=== PATIENT | male | born 1940 | race Caucasian/White ===

== ENCOUNTER 2021-01-12 11:37 | Emergency (ER) | payer MEDICARE, SELFPAY ==
[2021-01-12 11:45] VITALS: BP 139/79; PULSE 87; RESP 20; TEMP 36; O2SAT 97
--- NOTE | 2021-01-12 11:49 | ED.URI ---
HPI - URI/Sore Throat General Chief Complaint: Upper Respiratory Infection Stated Complaint: dr referral Time Seen by Provider: 01/12/21 11:49 Source: patient, RN notes reviewed and police Mode of arrival: ambulatory Limitations: no limitations History of Present Illness HPI Narrative: 80-year-old male presents to the [facility] requesting a Covid test. States he is having surgery on Friday at a surgery center in [place] for kidney stones. Patient states he has had a scratchy sore throat, intermittent cough and intermittent diarrhea for the last 2-1/2 days. Denies any fevers, nausea, vomiting. Denies any new shortness of breath. Denies chest pain. Patient reports he does have a history of seasonal allergies and states this is normally what it feels like. Related Data Home Medications Medication Instructions Recorded Confirmed atorvastatin 40 mg PO DAILY 01/12/21 01/12/21 azithromycin 250 mg PO DAILY 01/12/21 01/12/21 icosapent ethyl 1 g PO BID 01/12/21 01/12/21 insulin aspart (niacinamide) 100 unit SUBCUT DIRECTED 01/12/21 01/12/21 [Fiasp FlexTouch U-100 Insulin] levothyroxine 100 mcg PO DAILY 01/12/21 01/12/21 metformin 500 mg PO DAILY 01/12/21 01/12/21 Allergies Allergy/AdvReac Type Severity Reaction Status Date / Time bacitracin Allergy Unknown Unknown Verified 01/12/21 12:01 codeine Allergy Unknown UNKNOWN Unverified 01/12/21 12:01 neomycin Allergy Unknown Unknown Verified 01/12/21 12:01 polymyxin B Allergy Unknown Unknown Verified 01/12/21 12:01 Sulfa (Sulfonamide Allergy Unknown Unknown Verified 01/12/21 12:01 Antibiotics) telithromycin Allergy Unknown Unknown Verified 01/12/21 12:01 MACROLIDES Allergy Unknown RASH Uncoded 01/12/21 12:01 Review of Systems Review of Systems: Narrative: CONSTITUTIONAL: Denies fever, chills, or sweats. EYES: Denies visual changes, redness, or discharge. ENT: Denies rhinorrhea, congestion, or otalgia. Reports itchy throat CARDIOVASCULAR: Denies chest pain, palpitations, or edema. RESPIRATORY: Reports intermittent cough without new dyspnea. GASTROINTESTINAL: Denies abdominal pain, nausea, vomiting, or diarrhea. GENITOURINARY: Denies dysuria or hematuria. SKIN: Denies rash or itching. MUSCULOSKELETAL: Denies back pain, joint pain, or myalgia. NEUROLOGIC: Denies headache, numbness, or weakness. PSYCHIATRIC: Denies anxiety or depression. All other systems reviewed are negative, except as documented in HPI. [facility] Social History Social History Gender identity (if verbalized by the patient): Male Comments At the time of my signature, I reviewed and agree with the nursing past medical, surgical, social, and family history. There is no relevant family history pertinent to the patient complaint. Exam Narrative: Exam Narrative: GENERAL: This is a well-nourished, well-developed patient, in no apparent distress. HEAD: normocephalic, atraumatic. EYES: PERRL. Sclera clear/white. Vision is grossly intact. EARS: External ears normal, auditory canals clear and without drainage, TMs normal without perforation. Hearing grossly intact. NOSE: External nose normal. Clear nasal drainage, nares without redness. THROAT: Mucous membranes moist, posterior pharynx postnasal drip, thick clear drainage NECK: Neck supple, non-tender without lymphadenopathy, masses or thyromegaly. CARDIOVASCULAR: Regular rate and rhythm without murmurs, gallops, or rubs. RESPIRATORY: Clear to auscultation. Breath sounds equal bilaterally. No wheezes, rales, or rhonchi. GASTROINTESTINAL: Abdomen soft, non-tender, nondistended. SKIN: warm, Dry, intact with no suspicious lesions or rash, good texture and turgor. NEURO: awake, alert, and oriented to person, place and time. There were no obvious focal neurologic abnormalities. EXTREMITIES: No joint tenderness, effusion, or edema noted. BACK: Nontender without deformity. Course Vital Signs Vital signs: Vital Sign
[2021-01-13 20:54] LABS: SARS-CoV-2 RNA PCR Negative
== END 2021-01-12 12:03 | disposition home or self-care (01) ==
PROVIDERS: Emergency Provider Nurse Practitioner
DX: R09.82 Postnasal drip (principal); Z20.822 Contact with and (suspected) exposure to COVID-19; E78.00 Pure hypercholesterolemia, unspecified; I10 Essential (primary) hypertension; E11.9 Type 2 diabetes mellitus without complications; E03.9 Hypothyroidism, unspecified; Z95.5 Presence of coronary angioplasty implant and graft
CPT/HCPCS: 99213; C9803; G0463; U0003; U0005

== ENCOUNTER 2021-03-01 14:49 | Emergency (ER) | payer MEDICARE, SELFPAY ==
[2021-03-01 14:54] VITALS: BP 124/66; PULSE 60; RESP 20; TEMP 36.4; O2SAT 98
--- NOTE | 2021-03-01 14:54 | ED.SKABFB ---
HPI - Skin/Abscess/Foreign Bdy General Chief complaint: Skin/Abscess/Foreign Body Stated complaint: rash on leg and foot Time Seen by Provider: 03/01/21 14:57 Source: patient and RN notes reviewed History of Present Illness HPI narrative: Patient is an 81-year-old male who presents the urgent care with complaints of a itchy painful rash to the right ankle/lower leg. Patient states that it started on Friday and he assumed he had got a bug bite in the backyard . Patient states that it is now more painful in the area of redness has spread. Patient has not done anything [id number] for the rash. Denies of any fevers. Denies of any known tick bite. No other acute complaints. No acute distress noted. Patient aware of the plan of care. Some parts of this dictation were generated by voice recognition software and may contain typographical and/or grammatical inaccuracies. Related Data Home Medications Medication Instructions Recorded Confirmed atorvastatin 40 mg PO DAILY 01/12/21 01/12/21 azithromycin 250 mg PO DAILY 01/12/21 01/12/21 icosapent ethyl 1 g PO BID 01/12/21 01/12/21 insulin aspart (niacinamide) 100 unit SUBCUT DIRECTED 01/12/21 01/12/21 [Fiasp FlexTouch U-100 Insulin] levothyroxine 100 mcg PO DAILY 01/12/21 01/12/21 metformin 500 mg PO DAILY 01/12/21 01/12/21 Allergies Allergy/AdvReac Type Severity Reaction Status Date / Time bacitracin Allergy Unknown Unknown Verified 03/01/21 15:00 codeine Allergy Unknown UNKNOWN Verified 03/01/21 15:00 neomycin Allergy Unknown Unknown Verified 03/01/21 15:00 polymyxin B Allergy Unknown Unknown Verified 03/01/21 15:00 Sulfa (Sulfonamide Allergy Unknown Unknown Verified 03/01/21 15:00 Antibiotics) telithromycin Allergy Unknown Unknown Verified 03/01/21 15:00 MACROLIDES Allergy Unknown RASH Uncoded 01/12/21 12:01 Review of Systems Review of Systems: Narrative: CONSTITUTIONAL: Denies fever, chills, or sweats. EYES: Denies visual changes, redness, or discharge. ENT: Denies rhinorrhea, congestion, sore throat, or otalgia. CARDIOVASCULAR: Denies chest pain, palpitations, or edema. RESPIRATORY: Denies cough or dyspnea. GASTROINTESTINAL: Denies abdominal pain, nausea, vomiting, or diarrhea. GENITOURINARY: Denies dysuria or hematuria. SKIN: Reports of itchy painful rash to the lower right ankle/lower leg MUSCULOSKELETAL: Denies back pain, joint pain, or myalgia. NEUROLOGIC: Denies headache, numbness, or weakness. All other systems reviewed are negative, except as documented in HPI. PMFSH Social History Social History Gender identity (if verbalized by the patient): Male Comments At the time of my signature, I reviewed and agree with the nursing past medical, surgical, social, and family history. There is no relevant family history pertinent to the patient complaint. Exam Narrative: Exam Narrative: GENERAL: This is a well-nourished, well-developed patient, in no apparent distress. HEAD: normocephalic, atraumatic. EYES: PERRL. Sclera clear/white. Vision is grossly intact. EARS: External ears normal NOSE: External nose normal with no obvious nasal discharge, nares without redness, no rhinorrhea. THROAT: Mucous membranes moist NECK: Neck supple CARDIOVASCULAR: Regular rate and rhythm RESPIRATORY: Clear to auscultation. Breath sounds equal bilaterally. No wheezes, rales, or rhonchi. SKIN: 2 x 2 centimeter area of raised erythemic region to the medial aspect of the left lower leg/malleolus surrounding erythema measuring 4 cm in width and 8 cm in length NEURO: awake, alert, and oriented to person, place and time. There were no obvious focal neurologic abnormalities. EXTREMITIES: No edema to right lower leg. Positive strong right pedal pulse with capillary refill less than 2 seconds. Course Vital Signs Vital signs: Vital Signs Temperature 97.5 F L 03/01/21 14:54 Pulse Rate 60 03/01/21 14:54 Respiratory Rate 20
== END 2021-03-01 15:13 | disposition home or self-care (01) ==
PROVIDERS: Emergency Provider Nurse Practitioner Family
DX: S80.861A Insect bite (nonvenomous), right lower leg, initial encounter (principal); W57.XXXA Bitten or stung by nonvenomous insect and other nonvenomous arthropods, initial encounter; E78.00 Pure hypercholesterolemia, unspecified; I10 Essential (primary) hypertension; E11.9 Type 2 diabetes mellitus without complications; E03.9 Hypothyroidism, unspecified; Z95.5 Presence of coronary angioplasty implant and graft
CPT/HCPCS: 99213; G0463

== ENCOUNTER 2021-08-31 14:38 | Emergency (ER) | payer MEDICARE, SELFPAY ==
[2021-08-31 14:46] VITALS: BP 135/64; PULSE 59; RESP 18; TEMP 36.6; O2SAT 100
--- NOTE | 2021-08-31 15:12 | ED.URI ---
HPI - URI/Sore Throat General Chief Complaint: Upper Respiratory Infection Stated Complaint: cough causing pain in left side Source: patient and RN notes reviewed Mode of arrival: ambulatory History of Present Illness HPI Narrative: This is a 81-year-old male who presented to urgent care with complaints of some shortness of breath, cough that is productive with greenish sputum and congestion. Patient notes that he has pain to his left side beneath his ribs due to uncontrollable coughing. He also complains of a runny nose. His daughter was recently diagnosed with URI he took [id number] Robitussin for his symptoms. The patient denies CP, palpitation, extremity numbness, lightheadedness, dizziness, constipation, diarrhea, chills, or fever. MD elicited complaint: cough Related Data Home Medications Medication Instructions Recorded Confirmed atorvastatin 40 mg PO DAILY 01/12/21 08/31/21 icosapent ethyl 1 g PO BID 01/12/21 08/31/21 insulin aspart (niacinamide) 100 unit SUBCUT DIRECTED 01/12/21 08/31/21 [Fiasp FlexTouch U-100 Insulin] levothyroxine 100 mcg PO DAILY 01/12/21 08/31/21 metformin 500 mg PO DAILY 01/12/21 08/31/21 icosapent ethyl [Vascepa] 1 g PO QID 08/31/21 08/31/21 Allergies Allergy/AdvReac Type Severity Reaction Status Date / Time bacitracin Allergy Unknown Unknown Verified 03/01/21 15:00 codeine Allergy Unknown UNKNOWN Verified 03/01/21 15:00 neomycin Allergy Unknown Unknown Verified 03/01/21 15:00 polymyxin B Allergy Unknown Unknown Verified 03/01/21 15:00 Sulfa (Sulfonamide Allergy Unknown Unknown Verified 03/01/21 15:00 Antibiotics) telithromycin Allergy Unknown Unknown Verified 03/01/21 15:00 MACROLIDES Allergy Unknown RASH Uncoded 01/12/21 12:01 Review of Systems Review of Systems: A 14 organ system Review of Systems was performed and pertinent positives included in the HPI, otherwise remaining ROS is negative. [facility] Family History Family History (Updated 08/31/21 @ 15:15 by ABRAHAM Godinez) Other Family history non-contributory Social History Social History Gender identity (if verbalized by the patient): Male Exam Narrative: GENERAL: This is a well-nourished, well-developed patient, in no apparent distress. HEAD: normocephalic, atraumatic. EYES: PERRL. Sclera clear/white. Vision is grossly intact. EARS: External ears normal, auditory canals clear and without drainage, TMs normal without perforation. Hearing grossly intact. NOSE: External nose normal with no obvious nasal discharge, nares without redness, no rhinorrhea. THROAT: Mucous membranes moist, posterior pharynx clear. NECK: Neck supple, non-tender without lymphadenopathy, masses or thyromegaly. CARDIOVASCULAR: Regular rate and rhythm without murmurs, gallops, or rubs. RESPIRATORY: Clear to auscultation. Breath sounds equal bilaterally. No wheezes, rales, or rhonchi. GASTROINTESTINAL: Abdomen soft, non-tender, nondistended. Bowel sounds are active. No hepato-splenomegaly, or palpable masses. No guarding. SKIN: warm, intact with no suspicious lesions or rash, good texture and turgor. NEURO: awake, alert, and oriented to person, place and time. There were no obvious focal neurologic abnormalities. Steady gait EXTREMITIES: Normal range of motion. No edema. No calf tenderness. Negative Homans sign bilaterally. BACK: Nontender without deformity or crepitance. No flank tenderness. Course Course Emergency Course: Patient will discharge home with Tessalon Perles, guaifenesin, Flonase and albuterol Vital Signs Vital signs: Vital Signs Temperature 98 F 08/31/21 14:46 Pulse Rate 59 L 08/31/21 14:46 Respiratory Rate 18 08/31/21 14:46 Blood Pressure 135/64 08/31/21 14:46 Pulse Oximetry 100 08/31/21 14:46 Temperature 98 F 08/31/21 14:46 Pulse Rate 59 L 08/31/21 14:46 Respiratory Rate 18 08/31/21 14:46 Blood Pressure 135/64 08/31/21
[2021-09-01 20:10] LABS: SARS-CoV-2 RNA PCR Negative
== END 2021-08-31 15:38 | disposition home or self-care (01) ==
PROVIDERS: Emergency Provider Nurse Practitioner
DX: J40 Bronchitis, not specified as acute or chronic (principal); Z20.822 Contact with and (suspected) exposure to COVID-19
CPT/HCPCS: 87804; 99213; C9803; G0463; U0003; U0005

== ENCOUNTER 2021-11-30 14:17 | Emergency (ER) | payer MEDICARE, SELFPAY ==
[2021-11-30 14:29] VITALS: BP 118/64; PULSE 70; RESP 16; TEMP 37.1; O2SAT 97
--- NOTE | 2021-11-30 14:30 | ED.URI ---
HPI - URI/Sore Throat General Chief Complaint: Upper Respiratory Infection Stated Complaint: uri Time Seen by Provider: 11/30/21 14:30 Source: patient, family, RN notes reviewed and old records reviewed Mode of arrival: ambulatory Limitations: no limitations History of Present Illness HPI Narrative: 81-year-old male presents to the [facility] with generalized fatigue, I just do not feel right. Had a bronchitis symptoms with cough for approximately 10 days. Started with his sinuses the last 3 to 4 days. No treatment prior to arrival. Denies chest pain. No abdominal pain. No nausea vomiting or diarrhea. Denies fevers. MD elicited complaint: cough, rhinorrhea and nasal congestion Related Data Home Medications Medication Instructions Recorded Confirmed Fiasp FlexTouch U-100 Insulin 100 unit SUBCUT DIRECTED 01/12/21 11/30/21 atorvastatin 40 mg PO DAILY 01/12/21 11/30/21 levothyroxine 100 mcg PO DAILY 01/12/21 11/30/21 metformin 500 mg PO DAILY 01/12/21 11/30/21 icosapent ethyl [Vascepa] 1 g PO QID 08/31/21 11/30/21 Allergies Allergy/AdvReac Type Severity Reaction Status Date / Time bacitracin Allergy Unknown Unknown Verified 11/30/21 14:19 codeine Allergy Unknown UNKNOWN Verified 11/30/21 14:19 neomycin Allergy Unknown Unknown Verified 11/30/21 14:19 polymyxin B Allergy Unknown Unknown Verified 11/30/21 14:19 Sulfa (Sulfonamide Allergy Unknown Unknown Verified 11/30/21 14:19 Antibiotics) telithromycin Allergy Unknown Unknown Verified 11/30/21 14:19 MACROLIDES Allergy Unknown RASH Uncoded 11/30/21 14:19 Review of Systems Review of Systems: All systems reviewed & are unremarkable except as noted in HPI and below Constitutional: Constitutional: Reports no additional constitutional complaints, Denies chills, Denies fever(s) and Denies headache(s) Eyes: Eyes: Reports no additional eye complaints ENT: Reports as per HPI, Denies vertigo, Denies dizziness, Denies headache(s), Reports nasal congestion and Denies sore throat Cardiovascular: Cardiovascular: Reports no additional cardiovascular complaints, Denies chest pain, Denies syncope, Denies rapid heart rate and Denies dyspnea Respiratory: Respiratory: Reports as per HPI, Denies cough, Denies dyspnea and Denies wheezing Gastrointestinal: Gastrointestinal: Reports no additional gastrointestinal complaints, Denies abdominal pain, Denies diarrhea, Denies nausea and Denies vomiting Musculoskeletal: Musculoskeletal: Reports no additional musculoskeletal complaints and Denies numbness Integumentary/Breasts: Skin/Breast: Reports system reviewed and no additional complaints, except as docu Neurologic: Reports system reviewed and no additional complaints, except as documented, Denies vertigo, Denies dizziness, Denies syncope, Denies headache(s), Denies focal weakness and Denies numbness Psychiatric: Psychiatric: Reports no additional psychiatric complaints Allergic/Immunologic: Allergic/Immunologic: Reports no additional allergic/immunologic complaints and Denies wheezing PMFSH Past Medical History Medical History (Updated 11/30/21 @ 20:12 by Na Peraza APRN) Diabetes High cholesterol Surgical History Surgical History (Updated 11/30/21 @ 14:46 by Na Peraza APRN) H/O heart artery stent Family History Family History (Updated 08/31/21 @ 15:15 by ABRAHAM Godinez) Other Family history non-contributory Social History Social History Gender identity (if verbalized by the patient): Male Comments At the time of my signature, I reviewed and agree with the nursing past medical, surgical, social, and family history. There is no relevant family history pertinent to the patient complaint. Exam Const: General: cooperative, healthy appearing, no acute distress, well developed and alert Nutritional Appearance: well nourished and obese Orientation/consciousness: patient oriented x3 [employer]itat
== END 2021-11-30 14:52 | disposition home or self-care (01) ==
PROVIDERS: Emergency Provider Nurse Practitioner
DX: J40 Bronchitis, not specified as acute or chronic (principal); H61.21 Impacted cerumen, right ear; J01.40 Acute pansinusitis, unspecified; E11.9 Type 2 diabetes mellitus without complications; E78.00 Pure hypercholesterolemia, unspecified
CPT/HCPCS: 69210; 99213; G0463

== ENCOUNTER 2022-04-16 11:38 | Emergency (ER) | payer MEDICARE, SELFPAY ==
--- NOTE | ~2022-04-16 | XR_ITS ---
XR chest 2V 04/16/2022 12:32 Indication: Chest pain with cough and fever Procedure: 2 view chest Comparison: 02/08/2018 Findings: There is right lower lobe airspace disease which may represent atelectasis or developing pn eumonia. Stable cardiomediastinal silhouette. There is atherosclerosis. No edema or pneumothorax. No pleural effusion. Impression: 1: Right lower lobe airspace disease, atelectasis versus pneumonia. Reviewed, dictated and finalized at location A. Impression: 1: Right lower lobe airspace disease, atelectasis versus pneumonia.
[2022-04-16 11:47] VITALS: BP 127/63; PULSE 96; RESP 20; TEMP 38; O2SAT 97
--- NOTE | 2022-04-16 12:01 | ED.URI ---
HPI - URI/Sore Throat General Chief Complaint: Upper Respiratory Infection Stated Complaint: Fever/Cough Time Seen by Provider: 04/16/22 12:08 Source: patient and RN notes reviewed Mode of arrival: ambulatory Limitations: no limitations History of Present Illness HPI Narrative: 82-year-old male presents with concern for cough, fevers, headache, chest pain with coughing. He reports he has had a chronic cough for 2 years which he sees his primary care doctor for. However, he reports this cough has changed in nature and the chest pain with coughing is a new symptom. He reports has been taking Mucinex, Robitussin, Tylenol for his symptoms. He denies shortness of breath, chest pain on exertion, back pain. He denies nausea, vomiting, diarrhea. Denies any fatigue or body aches. He denies known sick contacts. MD elicited complaint: cough and sore throat Related Data Home Medications Medication Instructions Recorded Confirmed atorvastatin 40 mg tablet 40 mg PO DAILY 01/12/21 04/16/22 insulin aspart 100 unit subcut DIRECTED 01/12/21 04/16/22 (niacinamide)(U-100) 100 unit/mL(3 mL) subcutaneous pen (Fiasp FlexTouch U-100 Insulin) levothyroxine 100 mcg tablet 100 mcg PO DAILY 01/12/21 04/16/22 metformin 500 mg tablet 500 mg PO DAILY 01/12/21 04/16/22 icosapent ethyl 1 gram capsule 1 g PO QID 08/31/21 04/16/22 (Vascepa) ezetimibe 10 mg tablet 10 mg PO DAILY 04/16/22 04/16/22 Allergies Allergy/AdvReac Type Severity Reaction Status Date / Time bacitracin Allergy Unknown Unknown Verified 04/16/22 12:00 codeine Allergy Unknown UNKNOWN Verified 04/16/22 12:00 neomycin Allergy Unknown Unknown Verified 04/16/22 12:00 polymyxin B Allergy Unknown Unknown Verified 04/16/22 12:00 Sulfa (Sulfonamide Allergy Unknown Unknown Verified 04/16/22 12:00 Antibiotics) telithromycin Allergy Unknown Unknown Verified 04/16/22 12:00 MACROLIDES Allergy Unknown RASH Uncoded 11/30/21 14:19 Review of Systems Review of Systems: CONSTITUTIONAL: Reports malaise. Denies chills, sweats, or fever. EYES: Denies visual changes, redness, or discharge. ENT: Reports rhinorrhea, congestion, sore throat. Denies sinus pain, otalgia CARDIOVASCULAR: Denies chest pain, palpitations, or edema. RESPIRATORY: Reports productive cough. Denies dyspnea. GASTROINTESTINAL: Denies abdominal pain, nausea, vomiting, diarrhea SKIN: Denies rash or itching. MUSCULOSKELETAL: Denies myalgia. NEUROLOGIC: Reports headache. All systems reviewed & are unremarkable except as noted in HPI and below PMFSH Past Medical History Medical History (Updated 04/16/22 @ 12:47 by Na Lopez NP) Diabetes High cholesterol Surgical History Surgical History (Updated 11/30/21 @ 14:46 by Na Peraza, [employer]) H/O heart artery stent Family History Family History (Updated 08/31/21 @ 15:15 by ABRAHAM Godinez) Other Family history non-contributory Social History Social History Gender identity (if verbalized by the patient): Male Comments At time of signature, agree with nursing past medical, surgical, social and family history. There is no relevant family history pertinent to the presenting complaint Exam Narrative: GENERAL: Nontoxic and in no acute distress. HEAD: Normocephalic EYES: PERRLA, conjunctivae clear ENT: Nares clear, clear discharge. Mucous membranes moist. TM pearly chavez with dull light reflex bilaterally; no tragal tenderness. Oropharynx not erythematous without lesions. Tonsils not enlarged and without exudate, no drooling, no hoarseness, no trismus, uvula midline. NECK: Supple. No lymphadenopathy CHEST: Left lower lobe coarseness, otherwise clear to auscultation, breath sounds equal. No wheezing, rales, or stridor. No respiratory distress, speaks in full sentences. HEART: Regular rate and rhythm. No murmur heard. SKIN: Warm, dry, no rash. NEURO: Alert and oriented x3. PSYCH: Normal
[2022-04-16 18:46] LABS: SARS-CoV-2 RNA PCR Positive
== END 2022-04-16 12:50 | disposition home or self-care (01) ==
PROVIDERS: Emergency Provider Nurse Practitioner
DX: H66.90 Otitis media, unspecified, unspecified ear (principal); J18.9 Pneumonia, unspecified organism; Z20.822 Contact with and (suspected) exposure to COVID-19; E11.9 Type 2 diabetes mellitus without complications; E78.00 Pure hypercholesterolemia, unspecified; Z95.5 Presence of coronary angioplasty implant and graft
CPT/HCPCS: 71046; 87426; 99213; C9803; G0463; U0003; U0005

== ENCOUNTER 2022-08-13 11:54 | Emergency (ER) | payer MEDICARE, SELFPAY ==
--- NOTE | 2022-08-13 11:59 | ED.URI ---
HPI - URI/Sore Throat General Chief Complaint: Upper Respiratory Infection Stated Complaint: sinus / bronchitis Time Seen by Provider: 08/13/22 12:00 Source: patient and RN notes reviewed History of Present Illness HPI Narrative: patient is an 82-year-old male who presents to the Urgent Care with complaints of sinus congestion / pressure and cough since Friday. Patient denies any known fevers but states he has had some chills and body aches this morning. Denies any nausea or vomiting. Denies of shortness of breath or chest pain. Patient has been taking Mucinex and Robitussin. Denies any ill exposures. No other acute complaints. No acute distress noted. Patient aware of the plan of care. Some parts of this dictation were generated by voice recognition software and may contain typographical and/or grammatical inaccuracies. Related Data Home Medications Medication Instructions Recorded Confirmed atorvastatin 40 mg tablet 40 mg PO DAILY 01/12/21 04/16/22 insulin aspart 100 unit subcut DIRECTED 01/12/21 04/16/22 (niacinamide)(U-100) 100 unit/mL(3 mL) subcutaneous pen (Fiasp FlexTouch U-100 Insulin) levothyroxine 100 mcg tablet 100 mcg PO DAILY 01/12/21 04/16/22 metformin 500 mg tablet 500 mg PO DAILY 01/12/21 04/16/22 icosapent ethyl 1 gram capsule 1 g PO QID 08/31/21 04/16/22 (Vascepa) ezetimibe 10 mg tablet 10 mg PO DAILY 04/16/22 04/16/22 Allergies Allergy/AdvReac Type Severity Reaction Status Date / Time bacitracin Allergy Unknown Unknown Verified 04/16/22 12:00 codeine Allergy Unknown UNKNOWN Verified 04/16/22 12:00 neomycin Allergy Unknown Unknown Verified 04/16/22 12:00 polymyxin B Allergy Unknown Unknown Verified 04/16/22 12:00 Sulfa (Sulfonamide Allergy Unknown Unknown Verified 04/16/22 12:00 Antibiotics) telithromycin Allergy Unknown Unknown Verified 04/16/22 12:00 MACROLIDES Allergy Unknown RASH Uncoded 11/30/21 14:19 Review of Systems Review of Systems: CONSTITUTIONAL: Denies fever, chills, or sweats. EYES: Denies visual changes, redness, or discharge. ENT: Reports of drainage, rhinorrhea, congestion pressure CARDIOVASCULAR: Denies chest pain, palpitations, or edema. RESPIRATORY: reports of cough without dyspnea GASTROINTESTINAL: Denies abdominal pain, nausea, vomiting, or diarrhea. GENITOURINARY: Denies dysuria or hematuria. SKIN: Denies rash or itching. MUSCULOSKELETAL: Denies back pain, joint pain, or myalgia. NEUROLOGIC: Denies headache, numbness, or weakness. All other systems reviewed are negative, except as documented in HPI. [facility] Past Medical History Medical History (Updated 08/13/22 @ 12:25 by SHERRY Hollins) Diabetes High cholesterol Surgical History Surgical History (Updated 11/30/21 @ 14:46 by Na Peraza APRN) H/O heart artery stent Family History Family History (Updated 08/31/21 @ 15:15 by ABRAHAM Godinez) Other Family history non-contributory Social History Social History Gender identity (if verbalized by the patient): Male Comments At the time of my signature, I reviewed and agree with the nursing past medical, surgical, social, and family history. There is no relevant family history pertinent to the patient complaint. Exam Narrative: GENERAL: This is a well-nourished, well-developed patient. appears fatigued HEAD: normocephalic, atraumatic. EYES: PERRL. Sclera clear/white. Vision is grossly intact. EARS: External ears normal, auditory canals clear and without drainage, TMs normal without perforation. Hearing grossly intact. NOSE: External nose normal with no obvious nasal discharge. Bilateral erythema nares with clear to yellow rhinorrhea THROAT: Mucous membranes moist, posterior pharynx clear. moderate postnasal drainage NECK: Neck supple RESPIRATORY: Clear to auscultation. Breath sounds equal bilaterally. No wheezes, rales, or rhonchi. SKIN: warm, inta
[2022-08-13 12:02] VITALS: BP 141/70; PULSE 110; RESP 18; TEMP 36.9; O2SAT 100
[2022-08-13 12:03] VITALS: BP 141/70; PULSE 110; RESP 18; TEMP 36.9; O2SAT 100
== END 2022-08-13 12:34 | disposition home or self-care (01) ==
PROVIDERS: Emergency Provider Nurse Practitioner Family
DX: J40 Bronchitis, not specified as acute or chronic (principal); J32.9 Chronic sinusitis, unspecified; E11.9 Type 2 diabetes mellitus without complications; Z79.4 Long term (current) use of insulin
CPT/HCPCS: 87804; 99213; G0463

== ENCOUNTER 2023-06-14 09:53 | Emergency (ER) | payer MEDICARE, SELFPAY ==
[2023-06-14 10:16] VITALS: BP 104/65; PULSE 63; RESP 20; TEMP 36.6; O2SAT 98
--- NOTE | 2023-06-14 10:48 | ED.SKABFB ---
HPI - Skin/Abscess/Foreign Bdy General Chief complaint: Skin/Abscess/Foreign Body Stated complaint: rash Time Seen by Provider: 06/14/23 10:05 Source: patient Mode of arrival: ambulatory Limitations: no limitations History of Present Illness HPI narrative: 83-year-old male presents to [facility] with complaints of blister to the lateral aspect of his left ankle and an erythematous itchy rash to his right hand and left side of abdomen for the past 2-3 days. Patient reports that he has had similar blisters and rash occurring for the past 4 years. Patient reports that he has seen dermatology in the past and completed biopsy with no diagnosis. 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 Patient reports he has tried [id number] creams in the past with no relief. Patient denies fever, body aches, chills, nausea vomiting or diarrhea. Patient takes antihistamine twice a day. MD complaint: rash Onset (ago): year(s) (4) Relieving factors: none Exacerbating factors: none Context: none Associated symptoms: denies other symptoms Treatments prior to arrival: other (Cool compress) Related Data Home Medications Medication Instructions Recorded Confirmed atorvastatin 40 mg tablet 40 mg PO DAILY 01/12/21 04/16/22 insulin aspart 100 unit subcut DIRECTED 01/12/21 04/16/22 (niacinamide)(U-100) 100 unit/mL(3 mL) subcutaneous pen (Fiasp FlexTouch U-100 Insulin) levothyroxine 100 mcg tablet 100 mcg PO DAILY 01/12/21 04/16/22 metformin 500 mg tablet 500 mg PO DAILY 01/12/21 04/16/22 icosapent ethyl 1 gram capsule 1 g PO QID 08/31/21 04/16/22 (Vascepa) ezetimibe 10 mg tablet 10 mg PO DAILY 04/16/22 04/16/22 Allergies Allergy/AdvReac Type Severity Reaction Status Date / Time bacitracin Allergy Unknown Unknown Verified 04/16/22 12:00 codeine Allergy Unknown UNKNOWN Verified 04/16/22 12:00 neomycin Allergy Unknown Unknown Verified 04/16/22 12:00 polymyxin B Allergy Unknown Unknown Verified 04/16/22 12:00 Sulfa (Sulfonamide Allergy Unknown Unknown Verified 04/16/22 12:00 Antibiotics) telithromycin Allergy Unknown Unknown Verified 04/16/22 12:00 MACROLIDES Allergy Unknown RASH Uncoded 11/30/21 14:19 Review of Systems Constitutional: Constitutional: Denies chills, Denies fatigue, Denies fever(s) and Denies weakness ENT: Denies vertigo and Denies dizziness Cardiovascular: Cardiovascular: Denies chest pain Respiratory: Respiratory: Denies cough, Denies dyspnea and Denies wheezing Gastrointestinal: Gastrointestinal: Denies diarrhea, Denies nausea and Denies vomiting Genitourinary: Genitourinary: Denies dysuria Integumentary/Breasts: Skin/Breast: Denies breast mass, Reports pruritus, Reports rash and Denies skin ulcer PMFSH Past Medical History Medical History Diabetes High cholesterol Surgical History Surgical History H/O heart artery stent Family History Family History Other Family history non-contributory Social History Social History Gender identity (if verbalized by the patient): Male Comments At time of signature, I agree with nursing past medical, surgical, social and family history. There is no relevant family history pertinent to the presenting complaint. Exam Const: General: healthy appearing and no acute distress Nutritional Appearance: well nourished Orientation/consciousness: patient oriented x3 Limitations: no limitations HENMT: Head: normal to inspection Neck: Neck: normal visual inspection Resp: Effort & Inspection: normal respiratory effort and not labored Auscultation: clear to auscultation bilaterally, no crackles, no rales, no rhonchi and no wheezes Cardio: Rate: regular rate Rhyth
== END 2023-06-14 10:57 | disposition home or self-care (01) ==
PROVIDERS: Emergency Provider Nurse Practitioner Family
DX: R21 Rash and other nonspecific skin eruption (principal); E11.9 Type 2 diabetes mellitus without complications; Z79.4 Long term (current) use of insulin; Z79.84 Long term (current) use of oral hypoglycemic drugs; I10 Essential (primary) hypertension; I25.10 Atherosclerotic heart disease of native coronary artery without angina pectoris; Z95.5 Presence of coronary angioplasty implant and graft
CPT/HCPCS: 99211; G0463

== ENCOUNTER 2024-09-30 13:16 | Emergency (ER) | payer MEDICARE, SELFPAY ==
--- NOTE | ~2024-09-30 | XR_ITS ---
EXAMINATION: XR chest 2V DATE: 09/30/2024 15:00 INDICATION: Cough. TECHNIQUE: Frontal and lateral views of the chest were obtained. COMPARISON: Chest 2 views 04/16/22 FINDINGS: Calcified pulmonary nodules are consistent with old granulomatous disease. No pleural effus ion or pneumothorax. The heart size is normal. There are prominent pericardial fat pads. IMPRESSION: 1. No acute cardiopulmonary disease. Reviewed, dictated and finalized at location [facility]
--- NOTE | 2024-09-30 13:18 | ED_ITS ---
HPI - URI/Sore Throat General Chief Complaint: Upper Respiratory Infection Stated Complaint: Cough/Shortness of Breath Source: patient and RN notes reviewed Mode of arrival: ambulatory Limitations: no limitations History of Present Illness HPI Narrative: 84-year-old male presents with concern for productive cough, feeling of burning sensation in his bronchial tubes. He reports he has had episodes of shortness of breath, he does not currently feel short of breath. He denies chest pain. He reports some nasal congestion and drainage. He denies fevers. MD elicited complaint: cough Related Data Home Medications ?Medication ?Instructions ?Recorded ?Confirmed ?Last Taken ?Type atorvastatin 40 mg tablet 40 mg PO DAILY 01/12/21 09/30/24 Unknown History insulin aspart 100 unit subcut DIRECTED 01/12/21 09/30/24 Unknown History (niacinamide)(U-100) 100 unit/mL(3 mL) subcutaneous pen (Fiasp FlexTouch U-100 Insulin) levothyroxine 100 mcg tablet 100 mcg PO DAILY 01/12/21 09/30/24 Unknown History metformin 500 mg tablet 500 mg PO DAILY 01/12/21 09/30/24 Unknown History ezetimibe 10 mg tablet 10 mg PO DAILY 04/16/22 09/30/24 Unknown History famotidine 20 mg tablet mg 09/30/24 Unknown History insulin glargine 100 unit/mL (3 unit subcut 09/30/24 Unknown History mL) subcutaneous pen (Lantus Solostar U-100 Insulin) insulin lispro 100 unit/mL subcut 09/30/24 Unknown History subcutaneous pen levothyroxine 88 mcg tablet mcg 09/30/24 Unknown History propranolol 80 mg capsule,24 mg PO 09/30/24 Unknown History hr,extended release tirzepatide 5 mg/0.5 mL mg subcut 09/30/24 Unknown History subcutaneous pen injector (Mounjaro) Allergies Allergy/AdvReac Type Severity Reaction Status Date / Time bacitracin Allergy Unknown Unknown Verified 09/30/24 13:20 codeine Allergy Unknown UNKNOWN Verified 09/30/24 13:20 neomycin Allergy Unknown Unknown Verified 09/30/24 13:20 polymyxin B Allergy Unknown Unknown Verified 09/30/24 13:20 Sulfa (Sulfonamide Allergy Unknown Unknown Verified 09/30/24 13:20 Antibiotics) telithromycin Allergy Unknown Unknown Verified 09/30/24 13:20 MACROLIDES Allergy Unknown RASH Uncoded 09/30/24 13:20 Review of Systems Review of Systems: CONSTITUTIONAL: Reports malaise. Denies chills, sweats, or fever. EYES: Denies visual changes, redness, or discharge. ENT: Reports rhinorrhea, congestion. Denies sinus pain, otalgia and sore throat. CARDIOVASCULAR: Denies chest pain, palpitations, or edema. RESPIRATORY: Reports productive cough, occasional dyspnea. GASTROINTESTINAL: Denies abdominal pain, nausea, vomiting, diarrhea SKIN: Denies rash or itching. MUSCULOSKELETAL: Denies myalgia. NEUROLOGIC: Denies headache. All systems reviewed & are unremarkable except as noted in HPI and below PMFSH Past Medical History Medical History Diabetes High cholesterol Surgical History Surgical History H/O heart artery stent Family History Family History Other Family history non-contributory Social History Social History Gender identity (if verbalized by the patient): Male Comments At time of signature, agree with nursing past medical, surgical, social and family history. There is no relevant family history pertinent to the presenting complaint Exam Narrative: GENERAL: Well-appearing, well-nourished, and in no acute distress. HEAD: Normocephalic EYES: PERRLA, conjunctivae clear ENT: Nares clear, turbinates edematous and erythematous, clear discharge. Mucous membranes moist. TM pearly chavez with dull light reflex bilaterally; no tragal tenderness. Oropharynx not erythematous without lesions. Tonsils not enlarged and without exudate, no drooling, no hoarseness, no trismus, uvula midline. NECK: Supple. No lymphadenopathy CHEST: Clear to auscultation, breath sounds equal. No wheezing, rhonchi, rales, or stridor. No respiratory distress, speaks in full sentences. HEART: Regular rate and rhythm. No murmur heard. SKIN: Warm, dry, no rash. NEURO: Alert and oriented x3. PSYCH: Normal mood and affect Course Course Emergency Course: Patient is aware of diagnosis, understands and agrees to treatment plan. Anticipatory guidance given. Patient agrees to follow-up as directed and is aware of reasons to seek care at the emergency department. Portions of this record may have been created with voice recognition software Level of Care: Express Care Visit Vital Signs Vital signs: Reviewed. MDM - URI/Sore Throat MDM Narrative Medical decision making narrative: Differential diagnosis considered: Conner virus, strep pharyngitis, allergic rhinitis, upper respiratory tract infection, sinusitis, rhinosinusitis, nasopharyngitis. viral pharyngitis, otitis media, otitis externa, pneumonia, bronchitis, viral cough syndrome, viral syndrome, and influenza. Exam findings show no acute concerns or changes; patient is non-toxic appearing and is in no distress. Patient is appropriate for outpatient treatment and follow-up. Lab Data Attestation: I reviewed the patient's lab results. Imaging Data My impression: Images reviewed, interpreted by radiologist, agree, see report. Radiologist's impression: EXAMINATION: XR chest 2V DATE: 09/30/2024 15:00 INDICATION: Cough. TECHNIQUE: Frontal and lateral views of the chest were obtained. COMPARISON: Chest 2 views 04/16/22 FINDINGS: Calcified pulmonary nodules are consistent with old granulomatous disease. No pleural effusion or pneumothorax. The heart size is normal. There are prominent pericardial fat pads. IMPRESSION: 1. No acute cardiopulmonary disease. Critical Care Time Critical Care Time Critical Care Time: No Discharge Plan Discharge Clinical Impression: Bronchitis Patient Disposition: Home, Self-Care Condition: Stable Instructions: Acute Cough (ED) Additional Instructions: Your x-ray looks normal, does not show pneumonia. We will treat you for b ronchitis. Recommend antihistamine such as Benadryl at night time and Zyrtec or Rima during the day Also, recommend symptomatic treatment includes: rest, fluids, and increase humidity of the air at home. Recommend Acetaminophen as directed on the bottle to reduce fever, pain, headache. Avoid smoking/second-hand smoke. Please schedule a follow-up visit with your personal physician for further evaluation and treatment within 3-5days. If your symptoms persist, change or worsen significantly before you can contact your personal physician then please, without delay, go to the emergency department for further evaluation. Patient Language: Nauruan Prescriptions: New benzonatate 200 mg capsule 200 mg PO TID PRN (Reason: cough) Qty: 14 0RF methylprednisolone [Medrol (Cheng)] 4 mg tablets,dose pack See Rx Instructions .ROUTE .COMPLEX Qty: 21 0RF Rx Instructions: orally per package directions No Action atorvastatin 40 mg tablet 40 mg PO DAILY levothyroxine 100 mcg tablet 100 mcg PO DAILY Fiasp FlexTouch U-100 Insulin 100 unit/mL (3 mL) insulin pen 100 unit SUBCUT DIRECTED metformin 500 mg tablet 500 mg PO DAILY ezetimibe 10 mg tablet 10 mg PO DAILY albuterol sulfate 90 mcg/actuation HFA aerosol inhaler 2 puff INHALATION QID PRN (Reason: shortness of breath or wheezing) Qty: 8 0RF levothyroxine 88 mcg tablet famotidine 20 mg tablet propranolol 80 mg capsule,extended release 24 hr PO insulin lispro 100 unit/mL insulin pen SUBCUT insulin glargine [Lantus Solostar U-100 Insulin] 100 unit/mL (3 mL) insulin pen SUBCUT Mounjaro 5 mg/0.5 mL pen injector SUBCUT Follow-up/Referrals: Sebastien,Jeffrey Calero MD [Primary Care Provider] -
[2024-09-30 13:31] VITALS: BP 104/59; PULSE 60; RESP 20; TEMP 36.1; O2SAT 98
== END 2024-09-30 15:11 | disposition home or self-care (01) ==
PROVIDERS: Emergency Provider Nurse Practitioner; PCP Internal Medicine
DX: J20.9 Acute bronchitis, unspecified (principal); E11.9 Type 2 diabetes mellitus without complications; Z79.4 Long term (current) use of insulin; E78.00 Pure hypercholesterolemia, unspecified
CPT/HCPCS: 71046; 99213; G0463